=== PATIENT | female | born 1985 | race Caucasian/White ===

== ENCOUNTER 2016-05-07 22:10 | Emergency (ER) | payer OTHER ==
[~2016-05-07] VITALS: Ht 157.5 cm; Wt 56.7 kg
[2016-05-07] MEDS ORDERED: GLYCERIN ADULT 1 SUPP.RECT RC ONE ×2 (23:00→23:21)
[2016-05-07 23:44] VITALS: BP 125/77
== END 2016-05-07 23:44 | disposition home or self-care (01) ==
LOC: ER 22:14
DX: K59.00 Constipation, unspecified (principal)
CPT/HCPCS: A4606; Z7610